=== PATIENT | female | born 1980 | race Caucasian/White ===

== ENCOUNTER → 2023-11-04 08:10 | Outpatient (REF) | payer BC, SELFPAY | LOC: WDC 08:10 | PROVIDERS: ATTENDING PHYSICIAN Nurse Practitioner Adult Health | DX: Z12.31 Encounter for screening mammogram for malignant neoplasm of breast (principal) | CPT/HCPCS: 77063; 77067 ==

== ENCOUNTER → 2024-11-09 07:22 | Outpatient (REF) | payer BC, SELFPAY | LOC: WDC 07:22 | PROVIDERS: ATTENDING PHYSICIAN Nurse Practitioner Adult Health | DX: Z12.31 Encounter for screening mammogram for malignant neoplasm of breast (principal) | CPT/HCPCS: 77063; 77067 ==

== ENCOUNTER → 2024-11-22 09:52 | Outpatient (REF) | payer BC, SELFPAY | LOC: WDC 09:52 | PROVIDERS: ATTENDING PHYSICIAN Nurse Practitioner Adult Health | DX: R92.8 Other abnormal and inconclusive findings on diagnostic imaging of breast (principal) | CPT/HCPCS: 76642 ==

== ENCOUNTER 2025-01-31 09:05 | Outpatient (RCR) | payer BC, SELFPAY ==
[2025-01-21 09:15] VITALS: BP 98/66
[2025-01-21] MEDS: NSS 250 IV (09:30)
[2025-01-21] MEDS: VENOFER 110 MG IV (09:34)
[2025-01-21 10:39] VITALS: BP 110/60
[2025-01-24 09:15] VITALS: BP 127/65
[2025-01-24] MEDS: NSS 250 IV (09:35)
[2025-01-24] MEDS: VENOFER 110 MG IV (09:40)
[2025-01-24 10:45] VITALS: BP 109/61
[2025-01-28 09:42] VITALS: BP 114/65
[2025-01-28] MEDS: NSS 250 IV (09:45)
[2025-01-28] MEDS: VENOFER 110 MG IV (09:45)
[2025-01-28 11:00] VITALS: BP 122/76
[2025-01-31] MEDS: VENOFER 110 MG IV (09:48)
[2025-01-31] MEDS: NSS 250 IV (09:49)
[2025-01-31 09:56] VITALS: BP 121/66
[2025-01-31 11:10] VITALS: BP 114/73
== END 2025-01-31 12:18 | disposition home or self-care (01) ==
LOC: OID 09:05
PROVIDERS: ATTENDING PHYSICIAN Registered Nurse Critical Care Medicine; FAMILY PHYSICIAN Nurse Practitioner Adult Health
DX: R79.0 Abnormal level of blood mineral (principal); E61.1 Iron deficiency; E55.9 Vitamin D deficiency, unspecified; R53.83 Other fatigue
CPT/HCPCS: 96365; J1756

== ENCOUNTER 2025-02-04 09:10 | Outpatient (RCR) | payer BC, SELFPAY ==
[2025-02-04 09:45] VITALS: BP 102/62
[2025-02-04] MEDS: NSS 250 IV (09:56)
[2025-02-04] MEDS: VENOFER 110 MG IV (09:57)
== END 2025-02-05 10:35 | disposition home or self-care (01) ==
LOC: OID 09:10
PROVIDERS: ATTENDING PHYSICIAN Registered Nurse Critical Care Medicine; FAMILY PHYSICIAN Nurse Practitioner Adult Health
DX: R79.0 Abnormal level of blood mineral (principal); E61.1 Iron deficiency; E55.9 Vitamin D deficiency, unspecified; R53.83 Other fatigue
CPT/HCPCS: 96361; 96365; J1756